=== PATIENT | female | born 1990 | race Caucasian/White ===

== ENCOUNTER 2020-02-13 22:47 | Emergency (ER) | payer OTHER, SELFPAY ==
[2020-02-13 22:51] VITALS: BP 146/111; PULSE 101; RESP 18; TEMP 37.3; O2SAT 100; BMI 20.5
--- NOTE | 2020-02-13 22:54 | XR_ITS ---
WS: [id number] PORTABLE CHEST HISTORY: cough, fever COMPARISON: None available. Lungs are clear and well expanded. No pleural effusion or pneumothorax. Cardiac size: Normal. Mediastinum/Aorta: Normal mediastinum. No osseous abnormality seen. XR/XR chest 1V portable [id number] IMPRESSION: Unremarkable portable chest.
--- NOTE | 2020-02-13 23:19 | ED_ITS ---
HPI - General Adult General: Chief complaint: General Medical Stated complaint: fever,sob Time Seen by Provider: 02/13/20 23:08 Source: patient Mode of arrival: ambulatory Limitations: no limitations History of Present Illness: HPI narrative: Patient comes in for illness for 2 to 3 days. Patient states 3 days ago she started as a scratchy throat, yesterday she started feeling worse and today she started having a fever. Patient reports runny nose and occasional cough. Patient appears mildly unwell. Patient appears in no acute distress. Patient appears in no pain. Review of Systems General: Reports: 10 or more systems reviewed and unremarkable except in HPI and below ENMT: Reports: nasal discharge Resp: Reports: non-productive cough PFSH ED PFSH: Family History (Updated 12/06/19 @ 13:19 by Tena Boo LPN, RT) Grandfather Diabetes paternal Cancer Liver; paternal CAD (coronary artery disease) Grandmother Cancer Brain; maternal Psychiatric illness Depression Mother Psychiatric illness depression Social History (Updated 12/06/19 @ 13:21 by Tena Boo LPN, RT) Smoking and tobacco status: current every day smoker cigarettes Years cigarettes smoked: 8 Alcohol intake: current Alcohol intake frequency: few times a month Lives independently: Yes Household members: significant other Marital status: Life Partner Female Reproductive History: Date of last menstrual period: 02/12/20 Physical Exam Const: COMMON NORMALS: no apparent distress and oriented x3 GENERAL APPEARANCE: cooperative HENMT: COMMON NORMALS: normocephalic, external ears normal, EAC's normal and TM's normal bilaterally HEAD & SCALP: normal to inspection and normocephalic FACE & SINUS: normal facial exam NOSE: nasal discharge clear GENERAL EAR: hearing not grossly impaired EXTERNAL EAR: Yes external ears normal EXTERNAL AUDITORY CANAL: EAC's normal TYMPANIC MEMBRANE: TM's normal bilaterally MOUTH: oral and palatal mucosa normal THROAT: posterior oropharynx abnormal erythema Eye: COMMON NORMALS: PERRL and EOMs intact bilaterally PUPIL: Yes PERRL Neck/C-Spine: COMMON NORMALS: full ROM and no lymphadenopathy Lymph: LYMPHATIC: no lymphedema noted Chest: COMMONS NORMALS: inspection of chest normal and palpation of chest normal Resp: COMMON NORMALS: normal respiratory effort and clear to auscultation bilaterally AUSCULTATION: clear to auscultation bilaterally Cardio: COMMON NORMALS: regular rate and regular rhythm RATE: regular rate RHYTHM: regular rhythm GI: COMMON NORMALS: normal to inspection, nondistended, normoactive bowel sounds and non-tender : COMMON NORMALS: Yes no CVA tenderness BLADDER/KIDNEY EXAM: Yes no CVA tenderness Back/Pelvis: COMMON NORMALS: no CVA tenderness and thoracic and lumbar spine normal to inspection Extremity: COMMON NORMALS: normal to inspection GENERAL: No edema Neuro: COMMON NORMALS: oriented x3, moves all extremities and no focal motor deficits Psych: COMMON NORMALS: mental status grossly normal and cooperative Skin: COMMON NORMALS: no rashes or lesions noted GENERAL SKIN EXAM: no rashes or lesions noted Course Vital Signs: Vital signs: Vital Signs Temperature 99.1 F 02/13/20 22:51 Pulse Rate 101 H 02/13/20 22:51 Respiratory Rate 18 02/13/20 22:51 Blood Pressure 146/111 02/13/20 22:51 Pulse Oximetry 100 02/13/20 22:51 MDM - General Adult MDM Narrative: Medical decision making narrative: Patient comes in today for complaints of cough, fever, and malaise. On exam patient has nasal drainage, posterior pharynx is erythematous, lungs are clear to auscultation, vital signs are normal except for a slightly elevated pulse rate of 101. Differential diagnosis includes viral syndrome, upper respiratory infection, influenza, pneumonia. Flu test was positive for type A. Chest x-rays were normal. Reviewed exam with patient recommendations for treatment with plenty of fluids and follow-up with primary care. Patient reported understanding. Lab Data: Labs: Lab Results 02/13/20 Range/Units 23:35 Influenza Type A A g Positive H (Negative) POC Influenza B Ag Negative (Negative) Discharge Plan Discharge Patient Disposition: Home, Self-Care Clinical Impression: Influenza A Condition: Stable Prescriptions: New oseltamivir 75 mg capsule 75 mg PO BID 5 Days Qty: 10 RF: 0 No Action cetirizine [Zyrtec] 10 mg tablet 10 mg PO DAILY RF: 0 Discharge Orders: Discharge Order (Routine); Ordered 02/14/20 Ordered By: Aric Woodson Referrals: Tena Childers FNP [Primary Care Provider] - Discharge Diet: Usual diet Discharge Activity: Increase activity as tolerated Patient Instructions: Influenza (ED) Activity Restrictions/Additional Instructions: Home and rest Encourage plenty of fluids and rest Activity as tolerated Avoid being around vulnerable population Acetaminophen and ibuprofen for pain and fever Follow-up as needed Stand Alone Forms: Work/School Release Coding Level of Care Code ED Director Data Architecture for Pierre Fwd Exam Comprehensive
[2020-02-14 00:09] LABS: Influenza A by IFA Positive (Negative); Influenza B by IFA Negative (Negative)
[2020-02-14] MEDS: oseltamivir phosphate 75 mg Capsule PO (00:18)
[2020-02-14 00:22] VITALS: BP 118/85; PULSE 105; RESP 18; TEMP 36.9; O2SAT 100
== END 2020-02-14 00:20 | disposition home or self-care (01) ==
PROVIDERS: Emergency Provider Nurse Practitioner Family; Family Provider Nurse Practitioner Family; PCP Nurse Practitioner Family
DX: J09.X2 Influenza due to identified novel influenza A virus with other respiratory manifestations (principal); F17.210 Nicotine dependence, cigarettes, uncomplicated
CPT/HCPCS: 12345; 71045; 87804; 99282; 99283

== ENCOUNTER → 2021-09-13 08:05 | Outpatient (BNVA) | payer OTHER, SELFPAY | PROVIDERS: Family Provider Nurse Practitioner Family; PCP Nurse Practitioner Family; Visit Provider Nurse Practitioner Women's Health | DX: N92.6 Irregular menstruation, unspecified (principal) | CPT/HCPCS: 81025; 84702 ==

== ENCOUNTER → 2021-10-21 08:50 | Outpatient (BNVA) | payer OTHER, BC, MEDICAID, SELFPAY | PROVIDERS: Family Provider Nurse Practitioner Family; PCP Nurse Practitioner Family; Visit Provider Obstetrics & Gynecology | DX: Z34.01 Encounter for supervision of normal first pregnancy, first trimester (principal) | CPT/HCPCS: 80307; 84315; 84443; 85025; 86592; 86762; 86803; 86850; 86900; 87086; 87340; 87491; 87591; 87624; 87661; 87806 ==

== ENCOUNTER → 2022-01-13 14:43 | Outpatient (BNVA) | payer OTHER, BC, MEDICAID, SELFPAY | PROVIDERS: Family Provider Nurse Practitioner Family; PCP Nurse Practitioner Family; Visit Provider Obstetrics & Gynecology | DX: Z34.90 Encounter for supervision of normal pregnancy, unspecified, unspecified trimester (principal) | CPT/HCPCS: 81000 ==

== ENCOUNTER → 2022-02-07 08:48 | Outpatient (BNVA) | payer OTHER, BC, MEDICAID, SELFPAY | PROVIDERS: Family Provider Nurse Practitioner Family; PCP Nurse Practitioner Family; Visit Provider Obstetrics & Gynecology | DX: Z34.90 Encounter for supervision of normal pregnancy, unspecified, unspecified trimester (principal) | CPT/HCPCS: 82950; 84315; 84443; 85025 ==

== ENCOUNTER → 2022-04-04 15:05 | Outpatient (BNVA) | payer OTHER, BC, MEDICAID, SELFPAY | PROVIDERS: Family Provider Nurse Practitioner Family; PCP Nurse Practitioner Family; Visit Provider Obstetrics & Gynecology | DX: Z34.01 Encounter for supervision of normal first pregnancy, first trimester (principal) | CPT/HCPCS: 84315; 87081 ==

== ENCOUNTER → 2022-04-10 10:00 | Outpatient (BNVA) | payer OTHER, BC, MEDICAID, SELFPAY | PROVIDERS: Family Provider Nurse Practitioner Family; PCP Nurse Practitioner Family; Visit Provider Obstetrics & Gynecology | DX: Z34.90 Encounter for supervision of normal pregnancy, unspecified, unspecified trimester (principal) | CPT/HCPCS: 81000 ==

== ENCOUNTER 2022-04-14 09:00 | Inpatient (IN) | payer OTHER, BC, MEDICAID, SELFPAY ==
[2022-04-14] VITALS (20 sets, daily range): BP systolic 90–134; BP diastolic 53–82; PULSE 68–93; RESP 16; TEMP 36.9–37.1; BMI 28.2
[2022-04-14] MEDS: lidocaine 1% INJ 20 mL INTRADERMA (09:54)
[2022-04-14] MEDS: dextrose 5%-lactated ringers 1,000 ML 125 ML IV (09:56)
[2022-04-14] MEDS: oxytocin 30 UNIT/500 ML BAG 600 UNIT IV (09:56)
[2022-04-14] MEDS: HYDROcodone-acetaminophen 5-325 mg Tablet PO ×2 (10:25→21:01)
[2022-04-14] MEDS: benzocaine-menthol 78 gm Canister 1 SPRAY TOPICAL (10:25)
--- NOTE | 2022-04-14 11:12 | P.PCNOB_ITS ---
Delivery Note: Date of delivery: April 14, 2022 Pre-delivery diagnoses: IUP@ 37 weeks 5 days, active labor Post-delivery diagnoses: same, delivered Procedure: Delivering Physician: Cathleen Estimated blood loss (mL): 125 Findings: Term male in the SALVATORE presentation Pre-Delivery Course: The patient was admitted for active labor. Upon admission, her cervix had complete cervical dilation and the fetus was at the +2 station Delivery: The patient had complete cervical dilation and began to push. The head delivered in the SALVATORE position over an intact perineum under no anesthesia. The nose and mouth were bulb suctioned. The shoulders and body delivered atraumatically. The baby was placed onto the mother's abdomen. The cord was clamped and cut. Cord blood was obtained. The placenta delivered spontaneously. It was inspected and found to be intact. Inspection of the perineum revealed a second-degree midline laceration. This was repaired in the usual fashion. Estimated blood loss 125 mL. Apgars on baby were 8 at 1 minute and 8 at 5 minutes. Weight of baby is 7 pounds 6 oz. Mother and baby were stable post delivery. History History History 1 Term 0 Miscarriages/Ectopic Living Children Coding Level of Care Code Acute Injection Molding Engineer for Chg Brianna
[2022-04-14] MEDS: docusate sodium 100 mg Capsule PO (16:11)
[2022-04-14] MEDS: ibuprofen 800 mg tablet PO ×2 (16:11→21:02)
[2022-04-14 18:26] LABS: Basophils % 0.2 %; Eosinophils % 0.1 %; Hematocrit 35.3 % (37.0-47.0); Hemoglobin 11.5 g/dL (11.5-15.3); Lymphocytes # 1.6 10^3/uL (0.8-4.8); Lymphocytes % 9.7 %; Mean Corpuscular HGB Conc 32.6 g/dL (30.0-36.0); Mean Corpuscular Hemoglobin 30.2 pg (28.0-34.0); Mean Corpuscular Volume 92.7 fl (81-99); Monocytes # 0.9 10^3/uL (0.2-0.9); Monocytes % 5.3 %; Neutrophils % 83.9 %; Nucleated Red Blood Cells % 0 %; Platelet Count 159 10^3/cmm (130-400); Red Blood Count 3.81 10^6/uL (4.1-5.3); Red Cell Distribution Width 13.9 % (12.1-15.1); White Blood Count 16.6 10^3/uL (4.0-10.0)
[2022-04-14 18:34] LABS: Mean Platelet Volume 13.1 fL (7.4-10.4)
[2022-04-15 02:38] LABS: Hematocrit 28.6 % (37.0-47.0); Hemoglobin 9.5 g/dL (11.5-15.3); Mean Corpuscular HGB Conc 33.2 g/dL (30.0-36.0); Mean Corpuscular Hemoglobin 30.6 pg (28.0-34.0); Mean Corpuscular Volume 92.3 fl (81-99); Mean Platelet Volume 12.6 fL (7.4-10.4); Platelet Count 122 10^3/cmm (130-400); Red Cell Distribution Width 13.4 % (12.1-15.1); White Blood Count 12.6 10^3/uL (4.0-10.0)
[2022-04-15] MEDS: docusate sodium 100 mg Capsule PO (09:44)
[2022-04-15] MEDS: prenatal vitamin Capsule 1 CAP PO (09:44)
[2022-04-15] MEDS: ibuprofen 800 mg tablet PO ×2 (09:44→15:09)
--- NOTE | 2022-04-15 09:56 | P.DS_ITS ---
Discharge Providers Date of Admission: 04/14/22 09:00 Date of Discharge: April 15, 2022 Attending Provider at Admission: Salma Connolly MD Attending Provider at Discharge: Salma Connolly MD Primary Care Provider: AIDEN Cabezas Reason for Visit Reason for Visit: Contractions Hospital Course Hospital Course The patient was admitted in active labor. She had spontaneous delivery of a term male . she did well and was ready for discharge on day #1 Physical Exam Narrative: The patient is doing well this morning. No concerns. Const: COMMON NORMALS: no acute distress, average body habitus, patient oriented x3, no limitations, healthy appearing, alert and well nourished GENERAL APPEARANCE: cooperative, comfortable, well kempt and well developed ORIENTATION/CONSCIOUSNESS: Yes awake, Yes oriented to person, Yes oriented to place and Yes oriented to time Resp: COMMON NORMALS: normal respiratory effort EFFORT & INSPECTION: Yes able to speak in complete sentences GI: COMMON NORMALS: Soft to palpation and non-tender PALPATION: Yes Soft to palpation Extremity: COMMON NORMALS: no calf tenderness Neuro: COMMON NORMALS: patient oriented x3 SENSORIUM/ORIENTATION: Yes alert, Yes oriented to person, Yes oriented to place and Yes oriented to time Psych: APPEARANCE: Yes well kempt Discharge Data Studies Completed and Pending Laboratory Results WBC 12.6 10^3/uL (4.0-10.0) H 04/15/22 01:07 RBC 3.10 10^6/uL (4.1-5.3) L 04/15/22 01:07 Hgb 9.5 g/dL (11.5-15.3) L 04/15/22 01:07 Hct 28.6 % (37.0-47.0) L 04/15/22 01:07 MCV 92.3 fl (81-99) 04/15/22 01:07 MCH 30.6 pg (28.0-34.0) 04/15/22 01:07 MCHC 33.2 g/dL (30.0-36.0) 04/15/22 01:07 RDW 13.4 % (12.1-15.1) 04/15/22 01:07 Plt Count 122 10^3/cmm (130-400) L 04/15/22 01:07 MPV 12.6 fL (7.4-10.4) H 04/15/22 01:07 Neut % (Auto) 83.9 % 04/14/22 08:30 Lymph % (Auto) 9.7 % 04/14/22 08:30 Davidson % (Auto) 5.3 % 04/14/22 08:30 Eos % (Auto) 0.1 % 04/14/22 08:30 Baso % (Auto) 0.2 % 04/14/22 08:30 Neut # (Auto) 13.90 10^3/uL (1.8-7.7) H 04/14/22 08:30 Lymph # (Auto) 1.6 10^3/uL (0.8-4.8) 04/14/22 08:30 Davidson # (Auto) 0.9 10^3/uL (0.2-0.9) 04/14/22 08:30 Eos # (Auto) 0.0 10^3/uL (0.0-0.8) 04/14/22 08:30 Baso # (Auto) 0.0 10^3/uL (0.0-0.1) 04/14/22 08:30 Nucleated RBC % (auto) 0 % 04/14/22 08:30 Nucleated RBCs # 0.0 /100WBC 04/14/22 08:30 Vitals Last Vital Signs Temp 98.8 F 04/14/22 18:15 Pulse 71 04/14/22 18:15 Resp 16 04/14/22 18:15 BP 126/82 04/14/22 18:15 Discharge Plan Discharge Patient Disposition: Home Condition: Stable Prescriptions: Continued ferrous sulfate [Feosol] 325 mg (65 mg iron) tablet 325 mg PO BID 0RF DHA 200 mg capsule PO 0RF diphenhydramine HCl [Benadryl] 25 mg capsule 25 mg PO TID [id number] Discharge Orders: Discharge Order (Routine); Ordered 04/15/22 Ordered By: Salma Connolly Patient Instructions: Depression (DC), Bleeding (DC), Preeclampsia and Eclampsia After Delivery (GEN), OB Discharge Report, OB Food/Drug Interaction Guide, OB Care at Home, Opioid Safety, OB Home Care, OB Vaginal Deliveries - [facility], Abnormal Bleeding Discharge Attestations Time Spent in Discharge Care*: less than 30 min Quality Metrics Clinical Quality Measures [ No reported AMI, CVA or VTE this stay] Coding Level of Care Code Acute Chg FW DC note
[2022-04-15 10:25] VITALS: BP 120/80; PULSE 72; RESP 16; TEMP 36.8; O2SAT 95
[2022-04-15] MEDS: HYDROcodone-acetaminophen 5-325 mg Tablet PO (10:43)
[2022-04-15 19:17] VITALS: BP 120/74; PULSE 86; RESP 16; TEMP 36.8; O2SAT 96
== END 2022-04-15 18:10 | disposition home or self-care (01) | DRG 807 ==
LOC: OPOB 10:13 → OBGYN 10:13
PROVIDERS: Admitting Provider Obstetrics & Gynecology; Family Provider Nurse Practitioner Family; PCP Nurse Practitioner Family; Visit Provider Obstetrics & Gynecology
DX: O99.344 Other mental disorders complicating childbirth (principal); Z37.0 Single live birth; O70.1 Second degree perineal laceration during delivery; Z3A.37 37 weeks gestation of pregnancy; F32.A Depression, unspecified
CPT/HCPCS: 36415; 59025; 59409; 85025; 85027; 99211

== ENCOUNTER → 2022-05-09 14:24 | Outpatient (BNVA) | payer OTHER, BC, MEDICAID, SELFPAY | PROVIDERS: Family Provider Nurse Practitioner Family; PCP Nurse Practitioner Family; Visit Provider Obstetrics & Gynecology | DX: N90.89 Other specified noninflammatory disorders of vulva and perineum (principal) | CPT/HCPCS: 88305 ==

== ENCOUNTER 2022-07-22 10:24 | Day surgery (SDC) | payer OTHER, BC, MEDICAID, SELFPAY ==
[2022-07-22] VITALS (14 sets, daily range): BP systolic 104–125; BP diastolic 65–87; PULSE 74–129; RESP 16–19; TEMP 36.1–36.5; O2SAT 97–100
[2022-07-22 10:42] LABS: OR HCG Qualitative Urine Negative (Negative)
[2022-07-22] MEDS: acetaminophen 1,000 MG/100 ML PIGGYBACK 400 MG IV (10:55)
[2022-07-22] MEDS: sodium chloride 0.9% 1,000 ML 30 ML IV (11:00)
[2022-07-22] MEDS: gabapentin 300 mg Capsule PO (11:01)
[2022-07-22] MEDS: CELEcoxib 200 mg Capsule 400 MG PO (11:01)
--- NOTE | 2022-07-22 11:33 | ANES.PREANE2 ---
Pre-Anesthetic Assessment Height/Weight: Height 1.68 m Weight 61.689 kg Temp Pulse Resp BP Pulse Ox O2 Del Method 97.7 F 87 18 118/87 100 07/22/22 10:43 07/22/22 10:43 07/22/22 10:43 07/22/22 10:43 07/22/22 10:43 07/22/22 10:44 Preop Diagnosis: breakdown of perineum Operation Date: 07/22/22 11:50 Proposed Procedures p Perineal revision/repair 30145,O70.01(Not Applicable) - Salma Connolly MD Familial anesthetic complications: Patient has no problems with anesthesia, mother has hx of difficulty waking up but does not report allergy or life threatening reaction Was Beta Nisha taken within 24 hours: N/A Was Clonidine taken within 24 hours: N/A Last intake: Intake Last Liquid Date 07/21/22 Last Liquid Time 23:30 Last Solid Date 07/21/22 Last Solid Time 23:30 Social No alcohol and No tobacco Exam alert, oriented x 3, clear to auscultation bilaterally and regular rate & rhythm Airway Submandibular: within normal limits Cervical ROM: within normal limits Mallampati: Class I Dentition: full History/ROS No significant complaints Pulmonary None reported CV/HEM None reported Perineal [place] Hepatic None reported GI None reported Metabolic None reported Musc/skel None reported Neuropsych Anxiety, Depression and None reported Anesthetic Plan ASA status: 2 Anesthesia: Anesthesia Evaluation and General Other: We discussed risk and benefits of general anesthesia including PONV, sore throat (sometimes severe), corneal abrasion, positioning and peripheral nerve injuries, life threatening allergic reaction, post operative ICU admission requiring prolonged intubation, stroke, heart attack, , and rare incidences of recall. Patient consents to proceed with general anesthesia. Risk of > 500 ml blood loss (7ml/kg in children): No Medications/Allergies Home Medications Medication Instructions Recorded Confirmed Last Taken Type docosahexaenoic acid 200 mg 200 mg PO DAILY 10/21/21 07/21/22 Unknown History capsule ( DHA) norethindrone (contraceptive) 0.35 0.35 mg PO DAILY #28 tabs 06/01/22 07/21/22 Unknown Rx mg tablet (Ortho Micronor) Allergies Allergy/AdvReac Type Severity Reaction Status Date / Time promethazine [From Phenergan] Allergy Severe seizure Verified 07/22/22 10:38 Sulfa (Sulfonamide Allergy Mild rash Verified 07/22/22 10:38 Antibiotics) Opioids - Morphine Analogues Allergy Unknown unk Verified 07/22/22 10:38 Current Medications Generic Name Dose Route Start Last Admin Trade Name Deo PRN Reason Stop Dose Admin Sodium Chloride 1,000 mls @ 30 mls/hr 07/22/22 10:45 07/22/22 11:00 Sodium Chloride 0.9% IV 07/23/22 10:44 30 mls/hr .Q24H RIVERA Administration PFSH Anesthesia Medical History Hidradenitis suppurativa No pertinent past medical history neg dx- htn,dm,thyroid,dvt/pe PCP: none Surgical History History of breast augmentation (~03/2021) Gel Implants-- [place] History of cosmetic plastic surgery facial reconstruction due to dog attack. Family History Grandfather Diabetes paternal CAD (coronary artery disease) Cancer paternal-liver maternal- non smokers lung cancer Hypertension Colon cancer paternal Grandmother Cancer Brain; maternal Brain-paternal Psychiatric illness Depression Hypertension Mother Psychiatric illness depression Father Hypertension Denies family history of Ovarian cancer Thyroid cancer Clotting disorder Breast cancer Bleeding disorder Uterine cancer Thyroid disease Stroke Social History Smoking and tobacco status: never smoked Female Reproductive History Date of last menstrual period: 07/21/22 Data Anesthesia Cardiac Studies: No Data to Display
--- NOTE | 2022-07-22 12:42 | W.PM.OPSUD ---
Surgery/Procedure H&P Update DATE OF PROCEDURE: July 22, 2022 DATE H&P PERFORMED: 07/18/22 H&P UPDATE INFORMATION: I have reviewed H&P completed within last 30 days, I have examined patient prior to procedure and No changes to prior documentation PREOP DIAGNOSIS: breakdown of perineum PLANNED PROCEDURE: Operation Date: 07/22/22 11:50 Proposed Procedures p Perineal revision/repair 12866,O70.01(Not Applicable) - Salma Connolly MD
[2022-07-22] MEDS: ceFAZolin 2,000 MG in sodium chloride 0.9% (plus) 50 ML 100 MG IV (13:01)
--- NOTE | 2022-07-22 13:37 | P.OP_ITS ---
Operative Report Date of procedure: July 22, 2022 Pre-op diagnosis: Preop Diagnosis breakdown of perineum Post-op diagnosis: same Post-op findings: normal appearing perineum Surgeon: Salma Connolly Anesthesia: MAC Estimated blood loss (mL): 5 IV fluids (mL): 600 Complications: none Findings: small breakdown of perineum Condition: stable Disposition: PACU Procedure: The patient was taken to the operating room where monitored anesthesia was administered and found to be adequate. She was prepped and draped in the normal sterile fashion in the dorsal lithotomy position in [facility]. Attention was then turned to the perineorrhphy. Allis clamps were placed on the posterior fourchette. A 3 cm wedge of the fourchette was removed. This was repaired in the usual fashion with O-vicryl. There was good hemostasis post repair. The patient tolerated the procedure well. Sponge, lap and needle counts were correct times three. She was taken to the recovery room in stable condition.
--- NOTE | 2022-07-22 13:38 | PM.DCS ---
Discharge Providers Date of Admission: 07/22/22 Date of Discharge: July 22, 2022 Attending Provider at Discharge: Salma Connolly MD Primary Care Provider: AIDEN Cabezas Reason for Visit Reason for Visit: breakdown of perineum, Brief History: The patient was seen about 3 weeks with complaints of possible popping a stitch The perineum was visualized and there was some swelling present. It appeared that the perineal repair had broken down. Silver nitrate was applied several times to see if the pain would be any better. It wasn't but it did help with the inflammation. It was decided to take her to surgery for repair. Hospital Course Hospital Course The patient was admitted for surgery. She did well postoperatively and was ready for discharge. Discharge Data Studies Completed and Pending Laboratory Results Urine HCG, Qual Negative (Negative) 07/22/22 10:41 Vitals Last Vital Signs Temp 97.7 F 07/22/22 10:43 Pulse 87 07/22/22 10:43 Resp 18 07/22/22 10:43 BP 118/87 07/22/22 10:43 Pulse Ox 100 07/22/22 10:43 O2 Del Method 07/22/22 10:44 Discharge Plan Discharge Patient Disposition: Home Condition: Stable Prescriptions: New hydrocodone-acetaminophen 5-325 mg tablet 1 tab PO Q4H Qty: 20 0RF Continued DHA 200 mg capsule 200 mg PO DAILY norethindrone (contraceptive) [Ortho Micronor] 0.35 mg tablet 0.35 mg PO DAILY Qty: 28 12RF Discharge Orders: Discharge Order (Routine); Ordered 07/22/22 Ordered By: Salma Connolly Referrals: Salma Connolly MD [Physician] - 08/01/22 8:00 am Discharge Attestations Time Spent in Discharge Care*: less than 30 min Quality Metrics Clinical Quality Measures [ No reported AMI, CVA or VTE this stay] Coding Level of Care Code Acute Chg DC note
[2022-07-22] MEDS: fentaNYL 50 mcg/mL INJ 2mL IVP ×2 (13:45→13:56)
[2022-07-22] MEDS: meperidine 50 mg/mL INJ 12.5 MG IVP (14:04)
--- NOTE | 2022-07-22 15:45 | ANE.PACU2 ---
Inpatient post-anesthesia follow up: Airway intact: Yes Vital signs: Temperature 97.2 F Pulse Rate 78 Respiratory Rate 18 Blood Pressure 104/77 Pulse Oximetry 100 Oxygen Delivery Me thod Room Air Oxygen Flow Rate 6 Fraction of Inspir ed Oxygen Hydration adequate: Yes Nausea and vomiting: No Pain level: 1 Mental status: Baseline
== END 2022-07-22 15:14 | disposition home or self-care (01) ==
PROVIDERS: Anesthesiology; PCP Nurse Practitioner Family; Visit Provider Obstetrics & Gynecology
PROC: (CPT 57250; principal; 2022-07-22 11:40)
DX: O90.1 Disruption of perineal obstetric wound (principal); Z88.2 Allergy status to sulfonamides; Z88.5 Allergy status to narcotic agent
CPT/HCPCS: 56810; 81025; 84703; J2175; J2250; J3010; J7030

== ENCOUNTER 2022-08-10 17:51 | Emergency (ER) | payer OTHER, BC, MEDICAID, SELFPAY ==
[2022-08-10 17:56] VITALS: BP 112/78; PULSE 93; RESP 16; TEMP 36.7; O2SAT 98; BMI 21.4
--- NOTE | 2022-08-10 18:24 | W.ED.WOUNDLC ---
HPI - Wound/Laceration General: Chief Complaint: Wound/Laceration Stated Complaint: infected surgical site Time Seen by Provider: 08/10/22 18:01 History of Present Illness: 81-year-old female presents for a wound check. Patient reports that she recently had a perineum repair and now feels like it is infected having some pain and difficulty with the sutures absorbing. Patient reports that she has had multiple issues with it. That she saw Dr. Connolly about a 19 days ago and wound was healing fine. Over the last 24 hours she is gotten significantly more pain feels like maybe she has a cyst that is formed and is concerned that it may need to be lanced and drained. She has no fevers or chills Associated symptoms: Denies chills, fever(s), nausea or vomiting Review of Systems Const: Denies: fever(s) or chills Card: Denies: chest pain or palpitations Resp: Denies: dyspnea or productive cough GI: Denies: abdominal pain, nausea or vomiting : Reports: other (Please see HPI) Musc: Denies: neck pain or back pain Neuro: Denies: headache(s) or dizziness Psych: Denies: anxiety or depression PFSH ED PFSH: Medical History Hidradenitis suppurativa No pertinent past medical history neg dx- htn,dm,thyroid,dvt/pe PCP: none Surgical History History of breast augmentation (~03/2021) Gel Implants-- [place] History of cosmetic plastic surgery facial reconstruction due to dog attack. Family History Grandfather Diabetes paternal CAD (coronary artery disease) Cancer paternal-liver maternal- non smokers lung cancer Hypertension Colon cancer paternal Grandmother Cancer Brain; maternal Brain-paternal Psychiatric illness Depression Hypertension Mother Psychiatric illness depression Father Hypertension Denies family history of Ovarian cancer Thyroid cancer Clotting disorder Breast cancer Bleeding disorder Uterine cancer Thyroid disease Stroke Social History Smoking and tobacco status: never smoked Female Reproductive History: Date of last menstrual period: 07/21/22 Physical Exam Const: COMMON NORMALS: patient oriented x3 GENERAL APPEARANCE: other (Uncomfortable) NUTRITIONAL APPEARANCE: thin Resp: COMMON NORMALS: normal respiratory effort, No use of accessory muscles and clear to auscultation bilaterally AUSCULTATION: clear to auscultation bilaterally Cardio: COMMON NORMALS: regular rate and regular rhythm RATE: regular rate RHYTHM: regular rhythm GI: COMMON NORMALS: Normal to inspection, nondistended, normoactive bowel sounds present, Soft to palpation and No hepatosplenomegaly present PALPATION: Yes Soft to palpation and Yes No hepatosplenomegaly present : EXTERNAL FEMALE EXAM: Yes other (Patient with an incision that shows purulent drainage with sutures still in) OTHER: No abscess noted Extremity: COMMON NORMALS: normal to inspection, full ROM and capillary refill normal Neuro: COMMON NORMALS: patient oriented x3, moves all extremities and no focal motor deficits Psych: COMMON NORMALS: mental status grossly normal, cooperative and normal affect Skin: NARRATIVE SKIN EXAM: Infected surgical incision in the perineum Course Vital Signs: Vital signs: Vital Signs Temperature 98.0 F 08/10/22 17:56 Pulse Rate 93 08/10/22 17:56 Respiratory Rate 16 08/10/22 17:56 Blood Pressure 112/78 08/10/22 17:56 Pulse Oximetry 98 08/10/22 17:56 Oxygen Delivery Me thod 08/10/22 17:56 MDM - Wound/Laceration Medical Decision Making Patient with no abscess but she does have purulent drainage around the perineum incision. I did clip 1 suture which helped increase the drainage and provide her some pain relief. I will start her on doxycycline, give her a couple take-home pain medication and have her follow-up with Dr. Connolly tomorrow Discharge Plan Discharge Patient Disposition: Home Clinical Impression: Breakdown of perineum in the puerperium, Incisional infection Condition: Stable Prescriptions: New doxycycline monohydrate 100 mg capsule 100 mg PO BID 10 Days Qty: 20 0RF No Action DHA 200 mg capsule 200 mg PO DAILY norethindrone (contraceptive) [Ortho Micronor] 0.35 mg tablet 0.35 mg PO DAILY Qty: 28 12RF hydrocodone-acetaminophen 5-325 mg tablet 1 tab PO Q4H 14 Days Qty: 30 0RF Discharge Orders: Discharge ED (Routine); Ordered 08/10/22 Ordered By: Torres Solorio Referrals: Tena Childers FNP [Primary Care Provider] - Discharge Diet: Usual diet Discharge Activity: Increase activity as tolerated Patient Instructions: Care For Your Absorbable Stitches (ED), Opioid Safety, Pain Management, Wound Care (General) Activity Restrictions/Additional Instructions: Please follow-up with Dr. Connolly tomorrow for recheck of your symptoms Coding Level of Care Code ED Service Advocate Contact for Chg Fwd Exam Comprehensive
[2022-08-10 19:04] VITALS: RESP 18
[2022-08-10] MEDS: HYDROcodone-acetaminophen 5-325 mg Tablet 2 TAB PO (19:04)
[2022-08-10] MEDS: doxycycline 100 mg Tablet PO (19:04)
[2022-08-10] MEDS: fentaNYL 50 mcg/mL INJ 2mL XX (19:04)
--- NOTE | 2022-08-11 09:06 | DCPLANNER ---
Addendum entered by Gail Weber 08/11/22 15:06: Patient had a follow up appointment scheduled for 08.11.22 with [facility] - patient did attend appointment. Original Note: manager protein had message to schedule a [facility] with [facility]. manager protein sent patients information to the front office staff at [facility]. Patients information will be printed and reviewed. Clinic will call patient with appointment information.
== END 2022-08-10 19:11 | disposition home or self-care (01) ==
PROVIDERS: Emergency Provider Student in an Organized Health Care Education/Training Program; PCP Nurse Practitioner Family
DX: T81.41XA Infection following a procedure, superficial incisional surgical site, initial encounter (principal)
CPT/HCPCS: 87070; 96374; 99284; J3010

== ENCOUNTER → 2022-08-11 13:16 | Outpatient (BNVA) | payer OTHER, BC, MEDICAID, SELFPAY | PROVIDERS: PCP Nurse Practitioner Family; Visit Provider Obstetrics & Gynecology | DX: O90.1 Disruption of perineal obstetric wound (principal) | CPT/HCPCS: 87070; 87205 ==

== ENCOUNTER → 2023-05-25 12:57 | Outpatient (BNVA) | payer OTHER, BC, MEDICAID, SELFPAY | PROVIDERS: PCP Nurse Practitioner Family; Referring Provider Nurse Practitioner Family; Visit Provider Dermatology | DX: L73.2 Hidradenitis suppurativa (principal); D22.61 Melanocytic nevi of right upper limb, including shoulder; D22.62 Melanocytic nevi of left upper limb, including shoulder | CPT/HCPCS: 99203 ==

== ENCOUNTER 2024-02-09 05:11 | Inpatient (IN) | payer BC, MEDICAID, SELFPAY ==
--- NOTE | 2024-01-25 12:57 | P.ANESASSM_ITS ---
Pre-Anesthetic Assessment Height/Weight: Height 1.7 m Preop Diagnosis: breakdown of perineum Operation Date: 02/09/24 07:20 Proposed Procedures p Section 98954 z34.83, z87.59(Not Applicable) - Raul Parker MD Familial anesthetic complications: Patient has no problems with anesthesia, mother has hx of difficulty waking up but does not report allergy or life threatening reaction Was Beta Nisha taken within 24 hours: N/A Was Clonidine taken within 24 hours: N/A Last intake: Intake Last Liquid Date 07/21/22 Last Liquid Time 23:30 Last Solid Date 07/21/22 Last Solid Time 23:30 Social No alcohol and No tobacco Exam alert, oriented x 3, clear to auscultation bilaterally and regular rate & rhythm Airway Submandibular: within normal limits Cervical ROM: within normal limits Mallampati: Class I Dentition: full History/ROS No significant complaints Pulmonary None reported CV/HEM None reported Perineal [place] Hepatic None reported GI None reported Metabolic None reported Musc/skel None reported Neuropsych Anxiety, Depression and None reported Anesthetic Plan ASA status: 2 Anesthesia: Anesthesia Evaluation and Regional (specify below) Other: Spinal anesthesia for planned c/s Risk of > 500 ml blood loss (7ml/kg in children): Yes, adequate IV access and fluids planned Medications/Allergies Home Medications Medication Instructions Recorded Confirmed Last Taken Type docosahexaenoic acid 200 mg 200 mg PO DAILY 10/21/21 09/10/22 Unknown History capsule ( DHA) norethindrone (contraceptive) 0.35 0.35 mg PO DAILY #28 tabs 06/01/22 09/10/22 Unknown Rx mg tablet ([facility]) cephalexin 500 mg capsule 500 mg PO QID #40 caps 08/11/22 09/10/22 Unknown Rx hydrocodone 5 mg-acetaminophen 325 1 tab PO Q4H PRN pain 1 week #30 08/11/22 09/10/22 Unknown Rx mg tablet tabs metronidazole 500 mg tablet 500 mg PO BID #14 tabs 08/11/22 09/10/22 Unknown Rx Allergies Allergy/AdvReac Type Severity Reaction Status Date / Time promethazine [From Phenergan] Allergy Severe seizure Verified 09/08/22 11:27 Sulfa (Sulfonamide Allergy Mild rash Verified 09/08/22 11:27 Antibiotics) Opioids - Morphine Analogues Allergy Unknown unk Verified 08/11/22 12:53 vicryl AdvReac Intermediate ALGY-Bliste Uncoded 09/08/22 11:27 r [facility] Anesthesia Medical History Hidradenitis suppurativa No pertinent past medical history neg dx- htn,dm,thyroid,dvt/pe PCP: none Surgical History History of breast augmentation (~03/2021) Gel Implants-- [place] History of cosmetic plastic surgery facial reconstruction due to dog attack. Family History Grandfather Diabetes paternal CAD (coronary artery disease) Cancer paternal-liver maternal- non smokers lung cancer Hypertension Colon cancer paternal Grandmother Cancer Brain; maternal Brain-paternal Psychiatric illness Depression Hypertension Mother Psychiatric illness depression Father Hypertension Denies family history of Ovarian cancer Thyroid cancer Clotting disorder Breast cancer Bleeding disorder Uterine cancer Thyroid disease Stroke Social History Smoking and tobacco/nicotine status: never used tobacco/nicotine Substance/Drug Use: never Data Anesthesia Cardiac Studies: No Data to Display
[2024-02-09] VITALS (31 sets, daily range): BP systolic 107–127; BP diastolic 55–80; PULSE 55–86; RESP 16; TEMP 35.3–36.6; O2SAT 98–99; BMI 27.7
[2024-02-09 05:43] LABS: Basophils % 0.4 %; Eosinophils # 0.1 10^3/uL (0.0-0.8); Eosinophils % 1.6 %; Hematocrit 35.6 % (36-47); Lymphocytes # 2.8 10^3/uL (0.8-4.8); Lymphocytes % 33.6 %; Mean Corpuscular HGB Conc 32.6 g/dL (30-55); Mean Corpuscular Hemoglobin 29.4 pg (27-33); Mean Corpuscular Volume 90.4 fl (85-98); Mean Platelet Volume 12.1 fL (7.4-10.4); Monocytes # 0.7 10^3/uL (0.2-0.9); Monocytes % 8.1 %; Neutrophils # 4.56 10^3/uL (1.8-7.7); Neutrophils % 55.6 %; Nucleated Red Blood Cells % 0 %; Platelet Count 146 10^3/cmm (157-399); Red Blood Count 3.94 10^6/uL (3.85-5.65); Red Cell Distribution Width 14.3 % (12.1-15.1); White Blood Count 8.19 10^3/uL (3.29-11.43)
[2024-02-09] MEDS: lactated ringers 1,000 ML 999 ML IV (06:00)
--- NOTE | 2024-02-09 06:49 | PM.OBGYHP ---
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 The patient had a previous vaginal delivery after which she had a vaginal tear that required multiple repairs. She had vaginal pain and problems for over 6 months after the delivery. After that she continued to have dyspareunia which eventually has improved. Because of her difficult experience she was very concerned about having another vaginal delivery. We discussed the options of doing a vaginal delivery versus a section, we discussed the risks and advantages of each option. After an extensive discussion during her , the patient elected to proceed with a . Present Details : 2 Para: 1 Labs Rubella: Immune RPR: Negative GBS: Negative Medications/Allergies Home Medications Medication Instructions Recorded Confirmed Last Taken Type docosahexaenoic acid 200 mg 200 mg PO DAILY 10/21/21 02/09/24 02/07/24 08:00 History capsule ( DHA) Allergies Allergy/AdvReac Type Severity Reaction Status Date / Time promethazine [From Phenergan] Allergy Severe seizure Verified 02/09/24 05:39 Sulfa (Sulfonamide Allergy Mild rash Verified 02/09/24 05:39 Antibiotics) Opioids - Morphine Analogues Allergy Unknown unk Verified 02/09/24 05:39 vicryl AdvReac Intermediate ALGY-Bliste Uncoded 09/08/22 11:27 r 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 History of breast augmentation (~03/2021) Gel Implants-- [place] Family History Grandfather Diabetes paternal CAD (coronary artery disease) Cancer paternal-liver maternal- non smokers lung cancer Hypertension Colon cancer paternal Grandmother Cancer Brain; maternal Brain-paternal Psychiatric illness Depression Hypertension Mother Psychiatric illness depression Father Hypertension Denies family history of Ovarian cancer Thyroid cancer Clotting disorder Breast cancer Bleeding disorder Uterine cancer Thyroid disease Stroke Social History Smoking and tobacco/nicotine status: never used tobacco/nicotine Substance/Drug Use: never History History History 2 Term 1 0 Miscarriages/Ectopic 0 Living Children 1 Vitals/I&O/Wt Last Vital Signs Temp 97.3 F L 02/09/24 05:54 Pulse 72 02/09/24 05:54 BP 108/62 02/09/24 05:54 O2 Del Method Room Air 02/09/24 05:18 Weight last 48 hrs Weight 172 lb Physical Exam Const: COMMON NORMALS: patient oriented x3 and alert HENMT: COMMON NORMALS: moist oral mucous membranes HEAD & SCALP: normal to inspection Chest: COMMONS NORMALS: normal inspection of the chest Resp: COMMON NORMALS: clear to auscultation bilaterally AUSCULTATION: clear to auscultation bilaterally Cardio: COMMON NORMALS: regular rate and regular rhythm RATE: regular rate RHYTHM: regular rhythm GI: INSPECTION: Yes normal to inspection and Yes other (Gravid) Extremity: COMMON NORMALS: normal to inspection GENERAL: Yes edema (Trace) Neuro: COMMON NORMALS: patient oriented x3, moves all extremities and no sensory deficits noted SENSORIUM/ORIENTATION: Yes alert Psych: COMMON NORMALS: mental status grossly normal Skin: COMMON NORMALS: no rashes or lesions noted GENERAL SKIN EXAM: no rashes or lesions noted Data 02/09/24 05:30 Results Labs OB ([facility]): Obstetrics US 02/24/22 Blood Type A Positive 10/21/21 Antibody Screen Negative 10/21/21 Hct 35.6 % (36-47) L 02/09/24 Hgb 11.60 g/dL (11.27-16.99) 02/09/24 Rho(D) Type Positive 10/21/21 Plt Count 146 10^3/cmm (157-399) L 02/09/24 Hep Bs Antigen Non-reactive (Nonreactive) 10/21/21 Hepatitis C Antibody Non-reactive (Nonreactive) 10/21/21 Rubella IgG Antibody 40.3 IU/mL (0.0-10.0) H 10/21/21 RPR Nonreactive (Nonreactive) 10/21/21 HIV 1&2 Ab & HIV 1 Ag Non-reactive (Non-Reactiv) 10/21/21 TSH 1.04 uIU/mL (0.27-4.20) 02/07/22 Gest Glucose Tolerance 122 mg/dL 02/07/22 Ser , Semi-Qnt 381860.00 mIU/mL 09/13/21 HCG, Qual Positive (Negative) H 09/13/21 Urine Opiates Screen Negative ng/mL (Negative) 10/21/21 Ur Barbiturates Screen Negative ng/mL (Negative) 10/21/21 Ur Phencyclidine Scrn Negative ng/mL (Negative) 10/21/21 Ur Amphetamines Screen Negative ng/mL (Negative) 10/21/21 U Benzodiazepines Scrn Negative ng/mL (Negative) 10/21/21 Urine Cocaine Screen Negative ng/mL (Negative) 10/21/21 U Marijuana (THC) Screen Negative ng/mL (Negative) 10/21/21 Micro Urine Specimen 10/21/21 Pap Smear Interpret See note 10/21/21 A&P Assessment and plan (1) 39 weeks gestation of : Due to the patient's history of vaginal laceration and subsequent sequelae including repeat repair and dyspareunia the patient has elected to proceed with a section rather than to proceed with a vaginal delivery. We discussed the risks of the including the risks of bleeding, infection, and damage intra-abdominal organs. She has no further questions and wishes to proceed. Attestations Medical Necessity Statement*: I anticipate routine and post care Coding Level of Care Code Acute Code for Chg Fwd Diagnoses 39 weeks gestation of Z3A.39
[2024-02-09] MEDS: metoclopramide 5 mg/mL SDV 2 mL 10 MG IVP (06:52)
[2024-02-09] MEDS: citric acid-sodium citrate 30 mL UDC PO (06:52)
[2024-02-09] MEDS: ceFAZolin 2,000 MG in sodium chloride 0.9% (plus) 50 ML 100 MG IV (06:52)
[2024-02-09] MEDS: famotidine 20 mg/2 mL INJ IVP (06:53)
[2024-02-09] MEDS: BUPivacaine 0.5% INJ 30 mL INJECTION (08:07)
--- NOTE | 2024-02-09 08:22 | P.OP_ITS ---
Operative Report Date of procedure: February 09, 2024 Pre-op diagnosis: 1. 33-year-old 2 para 1-0-0-1 at 39 weeks estimated gestational age 2. History of complicated vaginal tear requiring multiple repairs and resulting in prolonged dyspareunia Post-op diagnosis: Status post section Procedure done: Low-transverse section Specimens removed/disposition: 1. Healthy appearing male with a weight of 8 pounds 0 ounces and Apgars of 9 and 9 2. Placenta with a three-vessel cord delivered intact Surgeon: Raul Parker MD Anesthesia: Spinal Estimated blood loss (mL): 500 Procedure: The patient was brought back to the operating room where she was prepped and draped in usual sterile fashion. Anesthesia was found to be adequate. A lower transverse skin incision was then made with a #10 blade. I then dissected down to the underlying subcutaneous tissue until arriving at the prerectal fascia. The fascia was then nicked with the scalpel bilaterally. The fascial incisions were then carried laterally with Griffith scissors. Attention was then turned to the superior aspect of the incision which was grasped with kochers and tented up away from the underlying rectus abdominis muscles. The muscles were then dissected away from the fascia manually, and later with Griffith scissors. Attention was then turned to the inferior aspect of the incision, and the fascia was dissected away from the underlying muscle in similar fashion. The rectus abdominis muscles were then spread manually. The peritoneum was entered manually. Excellent visualization of the uterus was noted. A lower transverse uterine incision was then made with a #10 blade. Upon arriving at the intrauterine cavity, the uterine incision was then extended manually. The was noted to be in vertex position. The baby was delivered without difficulty. After delivery of the head, the mouth and nose were suctioned at the site of the incision. There was no meconium. There was no nuchal cord. The remainder of the body was then delivered and placed on the abdomen. The cord was cut and clamped. The baby was then handed to the waiting nurse. The placenta was removed intact. The uterus was externalized. The intrauterine cavity was cleansed of any remaining debris. The uterine incision was reapproximated in 2 layers. The first layer was performed with 0 Polysorb in a running locked stitch. The second layer was an imbricating stitch also using 0 Polysorb. The uterus was replaced into the abdomen. The peritoneum was then irrigated with warm saline. I reexamined the uterine incision and found it to be hemostatic. The rectus abdominis muscles were then reapproximated using 0 Polysorb in a running stitch. The fascia was then reapproximated using 0 Polysorb in running stitch. The subcutaneous tissue was then reapproximated using 0 Polysorb as well. The skin was reapproximated using jersey. A sterile dressing was placed. All counts were correct x2. B oth the mother and baby were in stable condition.
--- NOTE | 2024-02-09 09:00 | ANE.PACU2 ---
Inpatient post-anesthesia follow up: Airway intact: Yes Vital signs: Temperature 96.4 F Pulse Rate 70 Respiratory Rate 16 Blood Pressure 111/68 Pulse Oximetry 99 Oxygen Delivery Me thod Room Air Oxygen Flow Rate Fraction of Inspir ed Oxygen Hydration adequate: Yes Nausea and vomiting: No Pain level: 1 Mental status: Baseline
[2024-02-09] MEDS: docusate sodium 100 mg Capsule PO ×2 (11:08→16:57)
[2024-02-09] MEDS: acetaminophen 325 mg Tablet 650 MG PO (11:08)
[2024-02-09] MEDS: lanolin oint 7 gm 1 APPLIC TOPICAL (12:21)
[2024-02-09] MEDS: ketorolac 30 mg/mL INJ IVP ×2 (13:05→20:25)
[2024-02-09] MEDS: dextrose 5%-lactated ringers 1,000 ML 125 ML IV (13:05)
[2024-02-09] MEDS: HYDROcodone-acetaminophen 5-325 mg Tablet PO (16:57)
[2024-02-09 20:52] LABS: Hematocrit 27.5 % (36-47); Mean Corpuscular HGB Conc 33.5 g/dL (30-55); Mean Corpuscular Volume 89.6 fl (85-98); Mean Platelet Volume 12.1 fL (7.4-10.4); Platelet Count 112 10^3/cmm (157-399); Red Blood Count 3.07 10^6/uL (3.85-5.65); Red Cell Distribution Width 14.1 % (12.1-15.1); White Blood Count 9.93 10^3/uL (3.29-11.43)
[2024-02-10] MEDS: ketorolac 30 mg/mL INJ IVP ×2 (02:09→08:43)
[2024-02-10 03:53] VITALS: BP 115/63; PULSE 81; TEMP 36.4
--- NOTE | 2024-02-10 08:01 | P.DS_ITS ---
Discharge Providers [employer] W[employer]ER MECH[employer] Date of Admission: 02/09/24 05:11 Date of Discharge: 02/10/24 Attending Provider at Admission: Raul Parker MD Attending Provider at Discharge: Raul Parker MD Primary Care Provider: AIDEN Cabezas Diagnoses at Discharge Discharge Diagnosis (1) 39 weeks gestation of : Status: Acute Reason for Visit Reason for Visit: epi consult Hospital Course Hospital Course The patient presented to the hospital for a primary section due to a history of a complicated vaginal repair and dyspareunia as a result. Her C- section was unremarkable. Her course has also been unremarkable. She is passing gas later the same day of the procedure. Her bleeding has been within normal limits. She has been breast-feeding well. She has been ambulating without difficulty. She did not have any Duramorph because of her morphine allergy. Her pain continues to not be as well-controlled as I would like. The patient has been holding off on taking some of her pain medication. Information Peripartum Data: Delivery Method: Physical Exam Narrative: She is in no acute distress Lungs are clear auscultation bilaterally Her heart has a regular rate and rhythm Her fundus is below the umbilicus and firm Her dressing is clean, dry and intact Her extremities have trace edema Urinary Catheter Management: [place]: Cath Placed During This Visit: yes, but has since been removed by the nurse Reason for Continuing Indwelling Catheter: Decision to DC Catheter Urinary Catheter Date of Insertion: 02/09/24 Urinary Catheter Time of Insertion: 07:05 Date Urinary Catheter Removed: 02/09/24 Time Urinary Catheter Discontinued: 18:00 History History History 2 Term 1 0 Miscarriages/Ectopic 0 Living Children 1 Discharge Data Studies Completed and Pending Laboratory Results WBC 9.93 10^3/uL (3.29-11.43) 02/09/24 20:45 RBC 3.07 10^6/uL (3.85-5.65) L 02/09/24 20:45 Hgb 9.20 g/dL (11.27-16.99) L 02/09/24 20:45 Hct 27.5 % (36-47) L 02/09/24 20:45 MCV 89.6 fl (85-98) 02/09/24 20:45 MCH 30.0 pg (27-33) 02/09/24 20:45 MCHC 33.5 g/dL (30-55) 02/09/24 20:45 RDW 14.1 % (12.1-15.1) 02/09/24 20:45 Plt Count 112 10^3/cmm (157-399) L 02/09/24 20:45 MPV 12.1 fL (7.4-10.4) H 02/09/24 20:45 Neut % (Auto) 55.6 % 02/09/24 05:30 Lymph % (Auto) 33.6 % 02/09/24 05:30 Gates % (Auto) 8.1 % 02/09/24 05:30 Eos % (Auto) 1.6 % 02/09/24 05:30 Baso % (Auto) 0.4 % 02/09/24 05:30 Neut # (Auto) 4.56 10^3/uL (1.8-7.7) 02/09/24 05:30 Lymph # (Auto) 2.8 10^3/uL (0.8-4.8) 02/09/24 05:30 Gates # (Auto) 0.7 10^3/uL (0.2-0.9) 02/09/24 05:30 Eos # (Auto) 0.1 10^3/uL (0.0-0.8) 02/09/24 05:30 Baso # (Auto) 0.0 10^3/uL (0.0-0.1) 02/09/24 05:30 Nucleated RBC % (auto) 0 % 02/09/24 05:30 Nucleated RBCs # 0.0 /100WBC 02/09/24 05:30 Blood Type A Positive 02/09/24 05:30 Rho(D) Type Rh positive 02/09/24 05:30 Antibody Screen Negative 02/09/24 05:30 Vitals Last Vital Signs Temp 97.5 F L 02/10/24 03:53 Pulse 81 02/10/24 03:53 Resp 16 02/09/24 16:55 BP 115/63 02/10/24 03:53 Pulse Ox 99 02/09/24 08:55 O2 Del Method Room Air 02/09/24 05:18 Results Labs OB ([facility]): Obstetrics US 02/24/22 Blood Type A Positive 02/09/24 Antibody Screen Negative 02/09/24 Hct 27.5 % (36-47) L 02/09/24 Hgb 9.20 g/dL (11.27-16.99) L 02/09/24 Rho(D) Type Rh positive 02/09/24 Plt Count 112 10^3/cmm (157-399) L 02/09/24 Hep Bs Antigen Non-reactive (Nonreactive) 10/21/21 Hepatitis C Antibody Non-reactive (Nonreactive) 10/21/21 Rubella IgG Antibody 40.3 IU/mL (0.0-10.0) H 10/21/21 RPR Nonreactive (Nonreactive) 10/21/21 HIV 1&2 Ab & HIV 1 Ag Non-reactive (Non-Reactiv) 10/21/21 TSH 1.04 uIU/mL (0.27-4.20) 02/07/22 Gest Glucose Tolerance 122 mg/dL 02/07/22 Ser , Semi-Qnt 329010.00 mIU/mL 09/13/21 HCG, Qual Positive (Negative) H 09/13/21 Urine Opiates Screen Negative ng/mL (Negative) 10/21/21 Ur Barbiturates Screen Negative ng/mL (Negative) 10/21/21 Ur Phencyclidine Scrn Negative ng/mL (Negative) 10/21/21 Ur Amphetamines Screen Negative ng/mL (Negative) 10/21/21 U Benzodiazepines Scrn Negative ng/mL (Negative) 10/21/21 Urine Cocaine Screen Negative ng/mL (Negative) 10/21/21 U Marijuana (THC) Screen Negative ng/mL (Negative) 10/21/21 Micro Urine Specimen 10/21/21 Pap Smear Interpret See note 10/21/21 Discharge Plan Discharge Patient Disposition: Home Condition: Stable Prescriptions: New hydrocodone-acetaminophen 10-325 mg tablet 1 tab PO Q6H Qty: 28 0RF ibuprofen 800 mg Tablet 800 mg PO TID Qty: 45 0RF docusate sodium 100 mg Capsule 200 mg PO BID Qty: 28 0RF Continued DHA 200 mg capsule 200 mg PO DAILY Discharge Orders: Discharge Order (Routine); Ordered 02/10/24 Ordered By: Raul Parker Referrals: Raul Parker MD [Physician] - (Already scheduled for Thursday) Discharge Diet: Usual diet Discharge Activity: Limit activity as instructed Patient Instructions: Opioid Safety Assessment: Depending on the patient's pain control the day, we may wait to discharge the patient until tomorrow. We will reevaluate her situation after 2 PM. Notify me whether she plans on going home today, or whether she wants to wait till later to see if she has adequate pain control before going home. Discharge Attestations [employer] W[employer] MECH[employer]IC Time Spent in Discharge Care*: less than 30 min Coding Level of Care Code Acute Code for Chg Fwd Diagnoses 39 weeks gestation of Z3A.39
[2024-02-10] MEDS: HYDROcodone-acetaminophen 5-325 mg Tablet 2 TAB PO ×2 (08:43→12:36)
[2024-02-10] MEDS: docusate sodium 100 mg Capsule 200 MG PO (08:44)
[2024-02-10 10:56] VITALS: BP 118/56; PULSE 90; TEMP 36.3
--- NOTE | 2024-02-10 14:39 | PC.NURSE ---
THIS NURSE CALLED DR. MUELLER ON 02/10/24 @2755 TO LET HIM KNOW PT WAS REQUESTING TO GO HOME AND THAT HER PAIN HAS BEEN WELL CONTROLLED WITH PAIN MEDICINE THROUGHOUT THE DAY. HE GAVE ORDERS TO DISCHARGE.
[2024-02-10 16:00] VITALS: BP 118/81; PULSE 105; TEMP 35.9
[2024-02-10 16:05] VITALS: BP 118/81; PULSE 105; RESP 16; TEMP 36.6
== END 2024-02-10 16:05 | disposition home or self-care (01) | DRG 788 ==
LOC: OBGYN 05:12
PROVIDERS: Admitting Provider Family Medicine; PCP Nurse Practitioner Family; Visit Provider Family Medicine
PROC: 10D00Z1 Extraction of Products of Conception, Low, Open Approach (ICD-10-PCS; CPT 59514; principal; 2024-02-09 07:00)
DX: O99.892 Other specified diseases and conditions complicating childbirth (principal); Z3A.39 39 weeks gestation of pregnancy; Z37.0 Single live birth; N94.10 Unspecified dyspareunia
CPT/HCPCS: 36415; 51702; 59025; 59409; 85025; 85027; 86850; 86900; 96374; 96376; 98960; J0690; J1885; J2371; J2405; J2765; J3010; J3490; J7120; J7121

== ENCOUNTER → 2025-01-09 15:01 | Outpatient (BNVA) | payer BC, MEDICAID, SELFPAY | PROVIDERS: PCP Nurse Practitioner Family; Visit Provider Nurse Practitioner | DX: M22.2X1 Patellofemoral disorders, right knee (principal); M25.361 Other instability, right knee; G89.29 Other chronic pain; M25.561 Pain in right knee; M25.562 Pain in left knee | CPT/HCPCS: 73560; 73565 ==